=== PATIENT | male | born 1935 | race Caucasian/White ===

== ENCOUNTER 2017-01-06 13:55 | Outpatient (CLI) | payer MEDICARE, OTHER ==
[2017-01-06 15:46] LABS: eGFR (African) > 60; eGFR (Non-African) > 60
--- NOTE | 2017-01-07 10:24 | OP Clinic Progress Note ---
REFERRING PHYSICIAN: Dr. Tylor Cantu REASON FOR VISIT: This male, born 1935, is seen with a history of a chronic cough, postnasal drainage, stuffiness, and thick mucus in his throat. He has had this at least 6 months. He felt as if it kind of came on with a cold. He takes inhalers, I believe, Symbicort regularly and p.r.n., usually once or twice a day at least, albuterol. He also uses a CPAP at night and has some difficulty with it. He has nasal congestion and stuffiness and mouth breathing. In addition, the patient is overweight. I do not feel any masses in his neck but he is significantly overweight and has a large anterior neck wattle that reduces the ability to really confirm that there is any mass in the neck but there is certainly nothing obvious. He has marked edema and erythema of the inferior turbinates bilaterally. The right nostril is somewhat more restricted than the left. Using a flexible fiberoptic laryngoscope down the left nostril, I see the patient's tongue base, which is somewhat thickened. There is lateral narrowing in addition. There is edema of the vocal cords. I do not see any mass, tumor , nor paralysis. 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 IMPRESSION: Overall, the picture is that the patient has diffuse edema and thickening. This is from chronic respiratory irritants to the nasal passages, the oropharynx , and more than likely the terminal aspects of the lung whittaker with the alveoli , bronchi, and the trachea. The patient by history got fairly markedly better taking steroids, although they do not know the dosage with this. It is possible that a low-grade fungus can contribute to this. He does have edema and erythema and thickening of the nasal membranes, the oropharynx, and larynx. PLAN: On an empiric basis, I gave him 100 mg of Diflucan to take 3 times a week on Wednesday, Wednesday, and Wednesday. He will get a chemistry profile. In addition, I have asked him to get a CT scan of his sinuses. Let us get a blood test of his allergies if it is possible to get a RAST and look at his immunoglobulins, specifically, the IgG, sedimentation rate, IgA, and IgM. Again, this seems to be diffuse edema and thickening of all the respiratory membranes from the tip of his nose to the bottom of his alveoli. More than likely this come on from the chronic pulmonary irritants and allergen abuse. Again, I gave him a trial on antifungal medications for a month. I gained the information as described above and will make some additional decisions and I will see him in about a month. cc: Dr. Tylor REAL
[2017-01-08 14:51] LABS: EGG WHITE <0.10 kU/L; POTATO <0.10 kU/L
== END 2017-01-06 13:56 ==
LOC: ENT 13:55
PROVIDERS: ATTEND Otolaryngology
DX: R05 Cough (principal)
CPT/HCPCS: 31575; 36415; 80053; 82784; 82785; 86003; G0463

== ENCOUNTER 2017-02-03 13:12 | Outpatient (CLI) | payer MEDICARE, OTHER ==
--- NOTE | 2017-02-05 13:54 | OP Clinic Progress Note ---
REASON FOR VISIT: Mr. Macdonald is an 81-year-old man seen in follow up of his chronic rhinosinusitis , postnasal drainage, slimy mouth, hoarseness and cough. It looks as if he may have had more of a superficial but diffuse fungal infection and he was Diflucan 100 mg on Wednesday, Wednesday, and Wednesday. The patient feels that he has not felt so good in a long time. He may be 80% to 85% improved. Using a flexible fiberoptic laryngoscope, I looked at the patient's larynx. He still has several patches of somewhat whitish and still some erythema. With the patient's consent, I would like to give him another month of Diflucan 100 mg on Wednesday, Wednesday, and Wednesday for that 4 weeks. He can continue to follow up with Dr. Tylor Cantu. cc: Dr. Tylor REAL
--- NOTE | 2017-02-08 15:15 | OP Clinic Progress Note ---
REFERRING PHYSICIAN: Dr. Tylor Cantu REASON FOR VISIT: Mr. Macdonald is an 81-year-old man seen in follow up of his chronic rhinosinusitis , postnasal drainage, slimy mouth, hoarseness, and cough. It looks as if he may have had more of a superficial but diffuse fungal infection and he was given Diflucan 100 mg to take Wednesday, Wednesday, and Wednesday. The patient feels that he has not felt so good in a long time. He may be 80% to 85% improved. Using a flexible fiberoptic laryngoscope, I looked at the patient's larynx. He still has several patches that are somewhat whitish and still some erythema. PLAN: With the patient's consent, I would like to give him another month of Diflucan 100 mg to take Wednesday, Wednesday, and Wednesday for that 4 weeks. He can continue to follow up with Dr. Tylor Cantu. cc: Dr. Tylor REAL
== END 2017-02-03 13:13 ==
LOC: ENT 13:12
PROVIDERS: ATTEND Otolaryngology
DX: J32.9 Chronic sinusitis, unspecified (principal); B48.8 Other specified mycoses
CPT/HCPCS: 31575; G0463

== ENCOUNTER 2017-03-10 14:46 | Outpatient (CLI) | payer MEDICARE, OTHER ==
--- NOTE | 2017-03-11 11:19 | OP Clinic Progress Note ---
REASON FOR VISIT: Joaquin is seen in follow up of his chronic laryngitis and rhinitis. He has taken 2 courses of Diflucan and has gotten progressively better. Recently, he has developed a low-grade bronchitis. His nose looks much improved with rhinoscopy and 0 and 30-degree lenses. He has some coarse rales in both lung whittaker. PLAN: Just on an empiric basis, I gave him amoxicillin 500 mg 3 times a day. He also uses a CPAP and he acknowledges that he does not keep it very clean and he may be chronically infecting himself. At this point, we are looking into making some effort to see if we can get a newer type of CPAP machine that is easier to be cleaned, as it is going to continue to be very difficult for him. cc: Dr. Tylor REAL
== END 2017-03-10 14:47 ==
LOC: ENT 14:46
PROVIDERS: ATTEND Otolaryngology
DX: J37.0 Chronic laryngitis (principal); J31.0 Chronic rhinitis
CPT/HCPCS: G0463

== ENCOUNTER 2017-03-17 13:01 | Outpatient (CLI) | payer MEDICARE, OTHER ==
--- NOTE | 2017-03-18 13:20 | OP Clinic Progress Note ---
REASON FOR VISIT: This is a follow up visit on Joaquin for throat discomfort and some cough. 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 Liver function tests look normal and the head looked adequate. He has had chest congestion and a few rales and rhonchi on his last visit. I gave him a course of amoxicillin. He still has about 4 days left on that. He feels that he is fairly significantly improved at least over 60%. His chest sounds much clearer. Using a flexible laryngoscope to check his vocal cords, although edematous, I do not see evidence of leukoplakia. His voice is significantly less hoarse. PLAN: At this point, I am turning him back over to the care of Dr. Cantu. If his symptoms relapse and he gets a little worse, I am more than happy to see him again. I am not giving him any new courses of medicines today. cc: Dr. Tylor REAL
== END 2017-03-17 13:02 ==
LOC: ENT 13:01
PROVIDERS: ATTEND Otolaryngology
DX: R07.0 Pain in throat (principal); R05 Cough
CPT/HCPCS: G0463

== ENCOUNTER 2017-05-12 14:50 | Outpatient (CLI) | payer MEDICARE, OTHER ==
--- NOTE | 2017-05-18 12:45 | OP Clinic Progress Note ---
REASON FOR VISIT: I have seen Joaquin off and on with an upper respiratory, chest, and throat symptoms. Overall, he has at least moderately improved on taking Diflucan. I discharged him with no specific follow up about a month ago. He has returned today with complaints of having a cold and an upper respiratory tract infection bothering his lungs and other complaints, along with some issues and problems with his CPAP machine. In regards to the CPAP machine, I have asked him to re- discuss that with whomever supplies that. He does have some rales and rhonchi but he has had those generally. His throat does not appear to have the white fungal patches that it had in the past by fiberoptic examination. PLAN: I gave him simply a trial on doxycycline 100 mg twice a day for 2 weeks. I have encouraged him to continue his follow up with Dr. Cantu. Thank you very much, cc: Dr. Tylor REAL
== END 2017-05-12 14:52 ==
LOC: ENT 14:50
PROVIDERS: ATTEND Otolaryngology
DX: R09.89 Other specified symptoms and signs involving the circulatory and respiratory systems (principal)
CPT/HCPCS: G0463

== ENCOUNTER 2017-06-09 15:02 | Outpatient (CLI) | payer MEDICARE, OTHER ==
--- NOTE | 2017-06-14 12:05 | OP Clinic Progress Note ---
REASON FOR VISIT: This 81-year-old man has previously been seen with problems complaining of chest and congestion issues and has been taking doxycycline and is markedly improved. At this time, the patient feels like mostly it is in his head. He has a cold and is congested with postnasal drainage, mouth breathing, more stuffiness than usual, and some degree of headaches and pressure and discomfort overlying the ethmoid and maxillary sinus areas. He does have some purulence in both nostrils , little more on the left than on the right today. Using zero and 30 degree endoscopes, I do not particularly see polyps today and he does have posterior pharyngitis. PLAN: On an empiric basis, he is given amoxicillin 500 mg 3 times a day and may return on a p.r.n. basis; however, I have encouraged him to see his physician, Dr. Cantu. cc: Dr. Tylor REAL
== END 2017-06-09 15:03 ==
LOC: ENT 15:02
PROVIDERS: ATTEND Otolaryngology
DX: J02.9 Acute pharyngitis, unspecified (principal); R51 Headache; R09.81 Nasal congestion
CPT/HCPCS: 31231; G0463

== ENCOUNTER 2017-09-29 10:17 | Outpatient (CLI) | payer MEDICARE, OTHER ==
--- NOTE | 2017-09-29 11:36 | Diagnostic Imaging Report ---
IRENE DUMONT [facility] [address] [facility].[address] [id number] Report Submission Date: Sep 29, 2017 11:33:16 AM MACHINE ASSEMBLER Patient Study Name: SYLVAIN JORDAN Date: Sep 29, 2017 11:08:42 AM MACHINE ASSEMBLER Modality Type: CR Gender: M Description: CHEST : 33 Institution: [facility] Physician: IRENE DUMONT Examination: PA and lateral chest. History: Evaluate lung whittaker. Comparison exam: None provided. Findings: PA lateral chest demonstrate a prominent cardiac and mediastinal silhouette. Vascular calcifications involving aortic arch. Lung base parenchymal scarring. No gross infiltrate. No blunting of the costophrenic margins. Osseous structures are appropriate for age. Impression: Chronic appearing parenchymal changes. No acute appearing pulmonary process. Electronically signed on Sep 29, 2017 11:33:16 AM MACHINE ASSEMBLER by: Javon REAL
== END 2017-09-29 10:20 ==
LOC: RAD 10:17
PROVIDERS: ATTEND Family Medicine
DX: J44.9 Chronic obstructive pulmonary disease, unspecified (principal)
CPT/HCPCS: 71020

== ENCOUNTER 2017-11-05 12:11 | Outpatient (CLI) | payer MEDICARE, OTHER ==
--- NOTE | 2017-11-15 12:57 | CONSULTATION REPORT ---
PRIMARY CARE PHYSICIAN: Dr. Tylor Cantu CONSULTING PHYSICIAN: Amanda Chung MD CHIEF COMPLAINT: "I am having trouble breathing and have congestion." PROBLEM LIST: 1. Chronic obstructive pulmonary disease (COPD). 2. Obstructive sleep apnea: On CPAP. 3. Diabetes. 4. Hyperlipidemia. 5. Hypertension. 6. Bladder cancer: Status post TURP and radiation. 7. Sinus congestion. HISTORY OF PRESENT ILLNESS: This is an 82-year-old male who is complaining of shortness of breath and congestion. He uses albuterol rarely but when he does, he says it helps him. He does not take his Symbicort because he feels good and therefore, he does not need it. He does have a nebulizer at home which he uses for albuterol and ipratropium and he states he likes the nebulized medicine very much. He does have home oxygen set at 2.5 liters, however, he rarely uses it during the day. He does have obstructive sleep apnea and states that this was diagnosed at [facility] approximately 15 to 20 years ago. He has not had any further sleep studies. He does have a CPAP machine that he thinks oxygen is bled into it at night and he states he wears his CPAP machine mask all night long. His DME provider is [facility] out of [place], [place]. He has seen an ENT physician for his sinus congestion. He has taken some doxycycline and feels somewhat better. He does use Sudafed p.r.n. which he states definitely helps him. On June 09, 2017, the patient did see Dr. Lindsay an ENT. He found no nasal polyps and some posterior pharyngitis. He prescribed him amoxicillin 500 mg 3 times a day. The patient used to smoke 1 pack of cigarettes per day for many years and then switched over to cigars. Currently, he is not smoking. He denies chest pain. There is no GERD. No PND. He definitely has postnasal drainage and as mentioned, he likes using Sudafed. He has never used prednisone. There is no hemoptysis. He still has a cough and has just occasionally pale sputum which has improved. His weight is stable. His appetite is good. There are no fever , chills, or sweats. There is no past history of asthma, pneumonia, or DVTs. REVIEW OF SYSTEMS: Please see HPI for pertinent review of systems, otherwise, all other systems are negative. ALLERGIES: No known allergies. MEDICATIONS: 1. Glipizide XL 10 mg daily. 2. Lovastatin 80 mg daily. 3. Lisinopril 20 mg daily. 4. Aspirin 81 mg daily. 5. Calcium with vitamin D 630/500 mg daily. 6. Fish/flax/borage oil 1 daily. 7. Symbicort 160/4.5, two inhalations b.i.d. 8. Albuterol and ipratropium via nebulizer 4 times per day. 9. Finasteride 5 mg daily. 10. Viagra p.r.n. SOCIAL HISTORY: Patient is retired and lives alone. His 3 years ago. FAMILY HISTORY: Patient does not know of his family medical history. PHYSICAL EXAMINATION: GENERAL: This is a well-developed, well-nourished obese male in no acute distress speaking in full sentences. VITAL SIGNS: BP: 197/96, P: 84, R: 24, T: 98.4, room air oxygen saturation was 93%. Height: 5 feet 11 inches. Weight: 246 pounds. BMI: 34.3. HEENT: Pupils are equal. Oropharynx is clear. No thrush. Neck: Supple. No JVD. Lungs: Good air movement bilaterally. Bilateral wheezing. Cardiac: Rate and rhythm are regular. No murmurs, rubs, or gallops. S1, S2 without S3 or S4. Abdomen: Obese, soft, and nontender. No organomegaly. Extremities: Trace edema. No cyanosis or clubbing. Neurologic: Awake, alert, and oriented. Grossly nonfocal. IMAGING: Imaging was independently reviewed by me personally. 1. Chest x-ray on September 29, 2017: Right lower lobe infiltrate versus scarring. ASSESSMENT AND PLAN: PROBLEM #1: Chronic obstructive pulmonary disease (COPD). I have reviewed with the patient the importance and necessity of taking Symbicort on a regular basis. I have also talked to him about adding a long- acting anticholinergic inhaler. At present, he states that he does not think he could afford that. PLAN: 1. Pulmonary function test (PFT) with arterial blood gas (ABG). 2. Albuterol MDI 2 puffs every 3 to 4 hours p.r.n. shortness of breath/ wheeze. 3. Since the patient likes his nebulizer and uses it, we will need to contact [facility] to see if it would be cost appropriate to give arformoterol and budesonide via the nebulizer and then stop the Symbicort. 4. Chest x-ray prior to next clinic visit. 5. Augmentin 875 mg p.o. b.i.d. for 10 days. PROBLEM #2: Sinus congestion. PLAN: 1. Augmentin 875 mg p.o. b.i.d. 2. On next visit, need to explore if the CPAP mask and CPAP machine are causing the sinus congestion. 3. Will contact [facility] for old sleep study. PROBLEM #3: Hypertension. Patient does admit that he did not take his morning blood pressure pill and will take one as soon as possible. PLAN: Monitor blood pressure on next visit. PROBLEM #4: Obesity Class 1. PROBLEM #5: Pulmonary prevention. Patient has had his flu shot this season. PLAN: Return to clinic in 1 month. cc: Dr. Tylor REAL
== END 2017-11-05 12:12 ==
LOC: PULMONARY 12:11
PROVIDERS: ATTEND Internal Medicine Pulmonary Disease
DX: J44.9 Chronic obstructive pulmonary disease, unspecified (principal); G47.30 Sleep apnea, unspecified; E11.9 Type 2 diabetes mellitus without complications; E78.5 Hyperlipidemia, unspecified; I10 Essential (primary) hypertension; R09.81 Nasal congestion; Z85.51 Personal history of malignant neoplasm of bladder
CPT/HCPCS: 99214; G0463

== ENCOUNTER 2017-11-15 09:45 | Outpatient (CLI) | payer MEDICARE, OTHER ==
[2017-11-15] MEDS ORDERED: ALBUTEROL SULFATE 2.5 MG/3 ML AMPUL.NEB NEB ONE (09:48)
[2017-11-15 10:09] LABS: ABG PH 7.48 (7.35-7.45)
== END 2017-11-15 09:46 ==
LOC: RT 09:45
PROVIDERS: ATTEND Internal Medicine Pulmonary Disease
DX: J44.9 Chronic obstructive pulmonary disease, unspecified (principal); R06.02 Shortness of breath; R05 Cough
CPT/HCPCS: 36600; 82803; 94060

== ENCOUNTER 2017-11-29 12:01 | Outpatient (CLI) | payer MEDICARE, OTHER ==
--- NOTE | 2017-11-29 14:55 | Diagnostic Imaging Report ---
TRINA MELLO [facility] [address] [facility] [address] [place] [address]. [id number] Report Submission Date: Nov 29, 2017 12:40:42 PM TELEPHONE TECHNICIAN Patient Study Name: SYLVAIN JORDAN Date: Nov 29, 2017 12:10:03 PM TELEPHONE TECHNICIAN Modality Type: CR Gender: M Description: CHEST : 33 Institution: [facility] Physician: TRINA MELLO Examination: PA and lateral chest. History: Evaluate lung whittaker. Comparison exam: None provided Findings: PA lateral chest demonstrate a mildly prominent cardiac and mediastinal silhouette. Mild parenchymal haziness at the right lung base. No blunting of the costophrenic margins. Flattening of the diaphragms on lateral view. Osseous structures are appropriate for age. Impression: Mild right lower lung infiltrate. No gross effusion Electronically signed on Nov 29, 2017 12:40:42 PM TELEPHONE TECHNICIAN by: Javon REAL
== END 2017-11-29 12:02 ==
LOC: RAD 12:01
PROVIDERS: ATTEND Internal Medicine Pulmonary Disease
DX: R06.02 Shortness of breath (principal); R05 Cough; J44.9 Chronic obstructive pulmonary disease, unspecified
CPT/HCPCS: 71020

== ENCOUNTER 2017-12-03 11:44 | Outpatient (CLI) | payer MEDICARE, OTHER ==
--- NOTE | 2017-12-13 12:32 | OP Clinic Progress Note ---
PRIMARY CARE PROVIDER: Dr. Tylor Cantu CHIEF COMPLAINT: "I have a bad head cold now." SIGNIFICANT PROBLEM LIST: 1. Severe chronic obstructive pulmonary disease (COPD), GOLD Class 3. 2. Obstructive sleep apnea: On CPAP. 3. Diabetes. 4. Hyperlipidemia. 5. Hypertension. 6. Bladder cancer: Status post TURP and radiation. 7. Sinus congestion. HISTORY OF PRESENT ILLNESS: This is an 82-year-old gentleman who returns for follow up after a month complaining now of having a head cold. He states that his breathing is better. He does not feel that he is wheezing but he definitely has head and nasal congestion. At his last visit, I had prescribed Augmentin which helped, and then after he completed the first trial of Augmentin, he called and requested more because he did not feel quite as good as he felt he should. I did prescribe another 14 days. Patient says it has helped but now he has the head cold. He denies sinus drainage. He denies fever. There is no myalgias. He is using his nebulizer and Symbicort as prescribed and he continues to refuse anticholinergic inhalers based on the shah. ALLERGIES: No known allergies. MEDICATIONS: 1. Lisinopril 20 mg daily. 2. Glipizide 5 mg daily. 3. Lovastatin 80 mg daily. 4. Aspirin 81 mg daily. 5. Calcium/D3, 630/500 mg daily. 6. Fish oil 1 tablet daily. 7. Symbicort 160/4.5, 2 puffs b.i.d. 8. DuoNeb nebulizer 3 to 4 times per day. 9. Finasteride 5 mg daily. 10. Viagra p.r.n. PHYSICAL EXAMINATION: Vital Signs: BP: 165/78, P: 84, R: 22, T: 97.8. Room air oxygen saturation is 92%. Height: 5 feet 11 inches. Weight: 240 pounds. BMI: 33.7, Class 1 obesity. General: This is a well-developed, well-nourished man who is mildly uncomfortable due to a head cold speaking in full sentences. HEENT: Pupils are equal and reactive. Oropharynx: Clear. No thrush. No erythema. Lungs: Good equal bilateral air excursion. No wheezing. No crackles. Cardiac: Rate and rhythm are regular, S1 and S2 without S3, S4, or murmurs. Abdomen: Obese, soft and nontender. Extremities: No cyanosis or clubbing. Trace edema. Neurologic: Alert and oriented x3. Grossly nonfocal. IMAGING: All imaging was independently reviewed by me personally. 1. Chest x-ray on November 29, 2017: Peribronchial cuffing. Flat diaphragm. Ill-defined haziness in right lower lobe (unable to compare to previous x-ray) . 2. Pulmonary function testing, spirometry on November 15, 2017: FVC of 2.51 liters, 71% of predicted; FEV1 was 1.15 liters, 42% of predicted; FEV1/FVC was 0.45. Interpretation: Severe COPD, GOLD Class 3. 3. ABG on November 15, 2017: Showed a pH of 7.48, pCO2 of 37, pO2 of 78 on room air. 4. Polysomnography on July 21, 2005: This is only the subsequent CPAP study which recommends CPAP via a smart machine at pressures between 7 and 15 cm of water. ASSESSMENT AND PLAN: PROBLEM #1: Severe chronic obstructive pulmonary disease (COPD), GOLD Class 3. The patient does state he feels that his breathing is better, although overall, does not feel well due to a head cold. He does take his nebulizer and inhaler as prescribed; however, he definitely does not want to take any inhaled anticholinergic due to the cost. PLAN: 1. Continue Symbicort b.i.d. 2. Continue albuterol MDI as rescue inhaler. 3. Continue DuoNeb via nebulizer. 4. Head cold with sinus congestion, unfortunately, most likely caused by a virus. There is no indication that the patient has an influenza infection and the patient has had a flu shot this season. 5. Return to clinic in 3 months. cc: Dr. Tylor REAL
== END 2017-12-03 11:45 ==
LOC: PULMONARY 11:44
PROVIDERS: ATTEND Internal Medicine Pulmonary Disease
DX: J44.9 Chronic obstructive pulmonary disease, unspecified (principal); G47.33 Obstructive sleep apnea (adult) (pediatric); E11.9 Type 2 diabetes mellitus without complications; E78.5 Hyperlipidemia, unspecified; I10 Essential (primary) hypertension; Z85.51 Personal history of malignant neoplasm of bladder; R09.81 Nasal congestion
CPT/HCPCS: 99214; G0463

== ENCOUNTER 2018-02-18 12:14 | Outpatient (CLI) | payer MEDICARE, OTHER ==
--- NOTE | 2018-02-28 08:33 | OP Clinic Progress Note ---
PRIMARY CARE PROVIDER: Dr. Tylor Cantu CHIEF COMPLAINT: Patient returning for COPD follow up. "My breathing is pretty good." SIGNIFICANT PROBLEM LIST: 1. Severe chronic obstructive pulmonary disease (COPD), GOLD Class 3. 2. Obstructive sleep apnea: On CPAP. 3. Diabetes. 4. Hyperlipidemia. 5. Hypertension. 6. Bladder cancer: Status post TURP and radiation. 7. Sinus congestion. HISTORY OF PRESENT ILLNESS: This is an 82-year-old male who returns for follow up after 3 months. He states that his main complaint is bilateral tingling in both of his feet. This is what is bothering him the most. He has not mentioned this to his primary care provider. Overall, he says his breathing is okay. He continues to use his CPAP with oxygen at night. He feels happy because he has a new CPAP machine, (Note: He never cleaned his previous one). He does continue to use his DuoNeb nebulizer 3 to 4 times a day as needed and he uses Symbicort twice a day. He still is not interested in obtaining an anticholinergic agent. ALLERGIES: No known allergies. PRESENT MEDICATIONS: 1. Lisinopril 20 mg daily. 2. Glipizide 5 mg daily. 3. Lovastatin 80 mg daily. 4. Aspirin 81 mg daily. 5. Calcium/D3, 630/500 mg daily. 6. Fish oil 1 tablet daily. 7. Symbicort 160/4.5, two puffs b.i.d. 8. DuoNeb nebulizer 3 to 4 times per day. 9. Finasteride 5 mg daily. 10. Viagra p.r.n. PHYSICAL EXAMINATION: Vital Signs: BP: 193/84, P: 88, R: 24, T: 96.3. Room air oxygen saturation was 93%. Weight: 240 pounds. BMI: 33.5. Class 1 obesity. GENERAL: This is a well-developed obese male in no acute distress speaking in full sentences. HEENT: Pupils are equal and reactive to light. Oropharynx is clear. No thrush. No erythema. LUNGS: Good air excursion bilaterally. No wheezes. Crackles at the right base. CARDIAC: Rate and rhythm are regular. No murmur, rubs, or gallops. ABDOMEN: Obese. Soft and nontender. EXTREMITIES: No cyanosis or clubbing. Trace to 1+ edema. NEUROLOGIC: Alert and oriented x3. Grossly nonfocal. ASSESSMENT AND PLAN: PROBLEM #1: Severe chronic obstructive pulmonary disease (COPD), GOLD Class 3. Currently, patient is doing well on his Symbicort and DuoNeb. He continues to refuse a trial of long-acting muscarinic inhalers, i.e. Spiriva. PLAN: 1. Continue Symbicort 160/4.5 b.i.d. 2. Continue albuterol MDI has rescue inhaler. 3. Continue DuoNeb via the nebulizer. PROBLEM #2: Possibly mild congestive heart failure (CHF). Patient clearly has slight crackles at his right base and has trace to 1+ edema. I suggested to the patient perhaps and echocardiogram. Depending on those results, could consider a diuretic which could improve his breathing and exercise tolerance. Patient at present is refusing the echocardiogram and the diuretic. PLAN: Re-assess his physical exam and need for echo in subsequent visits. PROBLEM #3: Bilateral foot tingling, most likely diabetic neuropathy. PLAN: 1. I referred him back to his primary care provider. 2. Patient chooses to return to clinic on a p.r.n. basis. cc: Dr. Tylor REAL
== END 2018-02-18 12:15 ==
LOC: PULMONARY 12:14
PROVIDERS: ATTEND Internal Medicine Pulmonary Disease
DX: J44.9 Chronic obstructive pulmonary disease, unspecified (principal); R20.9 Unspecified disturbances of skin sensation; G47.33 Obstructive sleep apnea (adult) (pediatric); E11.9 Type 2 diabetes mellitus without complications; E78.5 Hyperlipidemia, unspecified; I10 Essential (primary) hypertension; R09.81 Nasal congestion; D09.0 Carcinoma in situ of bladder
CPT/HCPCS: 99214; G0463

== ENCOUNTER 2018-02-23 10:42 | Outpatient (CLI) | payer MEDICARE, OTHER ==
--- NOTE | 2018-02-23 18:40 | Diagnostic Imaging Report ---
IRENE DUMONT [facility] [address] [facility] [address] [address] Report Submission Date: Feb 23, 2018 11:22:05 AM CDT Patient Study Name: SYLVAIN JORDAN Date: Feb 23, 2018 10:57:53 AM CDT Modality Type: DX Gender: M Description: LOWER EXTREMITY : 33 Institution: [facility] Physician: IRENE DUMONT Examination: Plain film left ankle History: LEFT ANKLE, PAIN IN LEFT ANKLE X1 WEEK WITH SWELLING AND DECREASED ROM , NO KNOWN INJURY (Hx) Findings: 3 views of the left ankle demonstrates normal distal tibia fibula. Mild cortical defect central aspect hematoma. Generalized soft tissue fullness. Calcaneal spurs. Vascular calcifications. Impression: Degenerative changes with possible talar dome chondral defect. Soft tissue swelling. Consider obtaining MRI ankle to further evaluate. Electronically signed on Feb 23, 2018 11:22:05 AM CDT by: Javon REAL
== END 2018-02-23 10:44 ==
LOC: LAB 10:42
PROVIDERS: ATTEND Family Medicine
DX: M25.572 Pain in left ankle and joints of left foot (principal); E11.9 Type 2 diabetes mellitus without complications
CPT/HCPCS: 36415; 73610; 83036

== ENCOUNTER 2018-08-25 20:45 | Inpatient (IN) | payer MEDICARE, OTHER ==
[2018-08-25 21:15] LABS: MEAN CORPUSCULAR HEMOGLOBIN 28.9 pg (28.0-34.0)
[2018-08-25 21:16] LABS: BASOPHILS % 0.3 (0.0-1.5); EOSINOPHILS % 1.7 % (0.0-6.8); MONOCYTES % 6.3 % (0.0-11.0); NEUTROPHILS # 10.1 # k/uL (1.4-7.7)
[2018-08-25 21:32] LABS: eGFR (Non-African) > 60
[2018-08-25] MEDS ORDERED: IPRATROPIUM/ALBUTEROL SULFATE 3 ML AMPUL.NEB NEB STA (21:32)
[2018-08-25] MEDS ORDERED: FUROSEMIDE 40 MG/4 ML VIAL IVP ONE (21:49)
--- NOTE | 2018-08-25 22:04 | Diagnostic Imaging Report ---
ANA LOUIS (PACKAGE DYE STAND LOADER) - ER [facility] [address] [address] Report Submission Date: Aug 25, 2018 9:47:37 PM CDT Patient Study Name: SYLVAIN JORDAN Date: Aug 25, 2018 9:28:52 PM CDT Modality Type: DX Gender: M Description: CHEST : 33 Institution: [facility] Physician: ANA LOUIS (PACKAGE DYE STAND LOADER) - ER Chest two views History: Shortness of breath. Findings: The lungs are hyperinflated. Heart size is normal. Pulmonary vascular congestion is present. Bibasilar reticular opacities are observed. Central pulmonary artery enlargement is observed. Impression: 1. Hyperinflation. 2. Bibasilar reticular opacities. Differential includes edema, atelectasis, bronchitis, and interstitial lung disease. 3. Pulmonary vascular congestion. 4. Central pulmonary artery enlargement suggests pulmonary hypertension. Electronically signed on Aug 25, 2018 9:47:37 PM CDT by: Sami REAL
[2018-08-25] MEDS ORDERED: methylPREDNISolone SOD SUCC 125 MG/2 ML VIAL IVP ONE (22:17)
--- NOTE | 2018-08-25 22:43 | ED Physician Documentation ---
Dyspnea - HISTORIAN Historian: patient - HPI Stated Complaint: SOA Chief Complaint: Dyspnea Onset: hours Duration: continues in ED Initiating Event: upper respiratory illness Severity: moderate Exacerbated By: nothing Further Comments: yes (84) - ROS CONST: recent illness EYES/ENT: none GI/: none NEURO/PSYCH: denies: headache MS/SKIN/LYMPH: none - PAST HX Lung Disease: COPD Cardiac Disease: CHF PE Risk Factors: hypertension Other History: diabetes Type 2, other (BPH, Home 02 prn, bipap, CHF, ) Allergies/Adverse Reactions: Allergies Allergy/AdvReac Type Severity Reaction Status Date / Time No Known Drug Allergies Allergy Verified 08/25/18 21:36 Home Medications: Ambulatory Orders Medication Instructions Recorded Aspirin [Aspir 81] 81 mg PO DAILY u2 03/12/16 Calcium Carb, Citrate/Vit D3 1 each PO DAILY u2 03/12/16 [Calcium + D3 Er Tablet] - SOCIAL HX Smoking History: non-smoker - FAMILY HX Family History: denies: none - VITAL SIGNS Vital Signs: Vital Signs Temp Pulse Resp BP Pulse Ox 100.3 F H 118 H 28 H 194/127 87 L 08/25/18 20:46 08/25/18 20:46 08/25/18 20:46 08/25/18 20:46 08/25/18 20:46 - REVIEWED ASSESSMENTS Nursing Assessment Reviewed: Yes Vitals Reviewed: Yes Progress - Progress Progress: RA Sat 87-88% on arrival Chest xray with pulmonary vascular congestion - dose of Lasix IV given. HTN treated with labetalol in ER. Solumedrol 125mg IV given. Reviewed lab and xray results with patient and family. Recommended admission - patient wants admission at [facility], refused transfer to [facility] Call to [facility] - patient accepted for med surg admit. Will continue nebs, O2, solumedrol and R/O OH. Patient agrees with plan of care. - EKG/XRAY/CT EKG: rhythm (ST, Rate 143) ED Results Lab/Radiology - Lab Results Lab Results: Lab Results 08/25/18 08/25/18 08/25/18 21:15 21:13 21:10 WBC RBC Hgb Hct MCV MCH MCHC RDW Plt Count Neut % (Auto) Lymph % (Auto) [place] % (Auto) Eos % (Auto) Baso % (Auto) Neut # (Auto) Lymph # (Auto) [place] # (Auto) Eos # (Auto) Baso # (Auto) Sodium 140 mmol/L mmol/L (136-145) Potassium 4.6 mmol/L mmol/L (3.5-5.1) Chloride 98 mmol/L mmol/L (98-107) Carbon Dioxide 30 mmol/L mmol/L (22-30) BUN 20 mg/dL mg/dL (9-20) Creatinine 1.20 mg/dL mg/dL (0.66-1.25) Est GFR ( Amer) > 60 (60 - ) Est GFR (Non-Af Amer) > 60 (60 - ) Glucose 114 mg/dL H mg/dL (74-106) Lactate 2.0 U/L U/L (0.7-2.1) Calcium 8.5 mg/dL mg/dL (8.4-10.2) Total Bilirubin 1.9 mg/dL H mg/dL (0.2-1.3) AST 21 U/L U/L (15-46) ALT 41 U/L U/L (13-69) Alkaline Phosphatase 84 U/L U/L (38-126) Troponin I 0.04 ng/mL ng/mL (0.03-0.06) NT-Pro-B Natriuret Pep 225.9 pg/mL pg/mL (15.0-450.0) Total Protein 7.1 g/dL g/dL (6.3-8.2) Albumin 3.9 g/dL g/dL (3.5-5.0) 08/25/18 21:10 WBC 12.10 K/ul H K/ul (4.00-12.00) RBC 5.39 M/ul H M/ul (3.90-5.20) Hgb 15.6 g/dL g/dL (12.0-18.0) Hct 48.2 % % (37.0-53.0) MCV 89.0 fl fl (80.0-100.0) MCH 28.9 pg pg (28.0-34.0) MCHC 32.3 g/dL g/dL (30.0-36.0) RDW 15.5 % H % (11.3-14.3) Plt Count 128 K/mm3 L K/mm3 (130-400) Neut % (Auto) 83.0 % H % (39.0-79.0) Lymph % (Auto) 8.7 % L % (16.0-50.0) [place] % (Auto) 6.3 % % (0.0-11.0) Eos % (Auto) 1.7 % % (0.0-6.8) Baso % (Auto) 0.3 (0.0-1.5) Neut # (Auto) 10.1 # k/uL H # k/uL (1.4-7.7) Lymph # (Auto) 1.1 # k/uL # k/uL (0.6-4.0) [place] # (Auto) 0.8 # k/uL # k/uL (0.0-0.9) Eos # (Auto) 0.2 # k/uL # k/uL (0.0-0.6) Baso # (Auto) 0.0 # k/uL # k/uL (0.0-0.5) Sodium Potassium Chloride Carbon Dioxide BUN Creatinine Est GFR ( Amer) Est GFR (Non-Af Amer) Glucose Lactate Calcium Total Bilirubin AST ALT Alkaline Phosphatase Troponin I NT-Pro-B Natriuret Pep Total Protein Albumin - Radiology Radiology Impressions: Chest two views History: Shortness of breath. Findings: The lungs are hyperinflated. Heart size is normal. Pulmonary vascular congestion is present. Bibasilar reticular opacities are observed. Central pulmonary artery enlargement is observed. Impression: 1. Hyperinflation. 2. Bibasilar reticular opacities. Differential includes edema, atelectasis, bronchitis, and interstitial lung disease. 3. Pulmonary vascular congestion. 4. Central pulmonary artery enlargement suggests pulmonary hypertension. Electronically signed on Aug 25, 2018 9:47:37 PM CDT by: Sami Anderson - Orders Orders: ED Orders Category Date Time Status Place IV Lock 1T Care 08/25/18 20:59 Active CHEST 2VIEW [RAD] Stat Exams 08/25/18 21:01 Completed CBC/PLATELET/DIFF Stat Lab 08/25/18 21:10 Completed CMP Stat Lab 08/25/18 21:10 Completed LACTATE Stat Lab 08/25/18 21:13 Completed NT-proBNP Stat Lab 08/25/18 21:15 Completed TROPONIN I (cTnI) Stat Lab 08/25/18 21:15 Completed Furosemide [Lasix] Med 08/25/18 21:49 Discontinued 40 mg IVP NOW ONE Ipratropium/Albuterol Sulfate [Duoneb] Med 08/25/18 21:32 Discontinued 3 ml NEB STAT STA methylPREDNISolone SOD SUCC [Solu-MEDROL] Med 08/25/18 22:17 Discontinued 125 mg IVP NOW ONE Dyspnea Physical Exam - EXAM General Appearance: moderate distress EENT: eye inspection normal, UNIQUE Respiratory: accessory muscle use, decreased air movement (bilateral), other (tachypneia) CVS: no murmur, no gallop, no friction rub, pulses full, pulses equal, tachycardia Skin: color nml, no rash, warm, nml palp., dry Extremities: non-tender, normal range of motion, no evidence of injury, no edema, J, [employer] Neuro/Psych: oriented x3, CN's nml as tested, motor nml, sensation nml, mood/affect nml Discharge Clincal Impression: COPD exacerbation, Pulmonary vascular congestion, Hypoxemia requiring supplemental oxygen, Dyspnea on exertion Condition: Stable Disposition: ADMITTED INPATIENT Decision to Admit: [id number] Decision Time: 22:15
[2018-08-25] MEDS ORDERED: LABETALOL HCL 100MG/20ML VIAL IVP STA (22:44)
[2018-08-25] MEDS ORDERED: IPRATROPIUM/ALBUTEROL SULFATE 3 ML AMPUL.NEB NEB PRN (23:59)
[2018-08-26] MEDS ORDERED: ASPIRIN 81 MG CHEW TAB PO ONE (01:54)
[2018-08-26] MEDS ORDERED: METOPROLOL TARTRATE 5 MG/5 ML VIAL IVP ONE ×2 (02:25→02:29)
--- NOTE | 2018-08-26 02:25 | Discharge Summary ---
Discharge Summary - Discharge Sumary History of Present Illness: Patient was admitted through the ER with COPD exacerbation, pulmonary congestion, dyspnea and increased oxygen requirements. Serial cardiac enzymes were ordered. Second troponin elevated to .74 Condition at Discharge: Guarded Home Medications: Ambulatory Orders Medication Instructions Recorded Aspirin [Aspir 81] 81 mg PO DAILY u2 03/12/16 Calcium Carb, Citrate/Vit D3 1 each PO DAILY u2 03/12/16 [Calcium + D3 Er Tablet] Consultations this Visit: None Procedures this Visit: None Allergies/Adverse Reactions: Allergies Allergy/AdvReac Type Severity Reaction Status Date / Time No Known Drug Allergies Allergy Verified 08/25/18 21:36 Patient Problems: Current Active Problems Problem Status Onset AMI (acute myocardial infarction) Acute COPD exacerbation Acute Dyspnea on exertion Acute Hypoxemia requiring supplemental oxygen Acute Pulmonary vascular congestion Acute Discharge Summary: [facility]. Had been on the floor for approximately 2 hours when Second troponin was .74 Case discussed with family - recommended transfer to higher level of care. Family prefers [place]. 0224 Call to [facility]; patient accepted by Dr Price. EKG 0211 SR, Rate 92, no acute change. BP 149/79 - additional 5mg metoprolol given. Hospital Course: Transferred to [place] 025
[2018-08-26 03:56] VITALS: BP 148/79
[2018-08-26 04:09] VITALS: BMI 34.8
[2018-08-26] MEDS ORDERED: SALINE FLUSH 10 ML DISP.SYRIN IV SCH (09:00)
== END 2018-08-26 03:45 | disposition short-term general hospital (02) | DRG 192 ==
LOC: ED 20:45 → SOUTH 23:02
PROVIDERS: ADMIT Family Medicine; ATTEND Family Medicine
DX: J44.1 Chronic obstructive pulmonary disease with (acute) exacerbation (principal); R79.89 Other specified abnormal findings of blood chemistry; I50.9 Heart failure, unspecified; R09.02 Hypoxemia; I10 Essential (primary) hypertension; E11.9 Type 2 diabetes mellitus without complications; Z99.81 Dependence on supplemental oxygen
CPT/HCPCS: 71046; 80053; 83605; 83880; 84484; 85025; J1940; J2930; J3490; 94640; 96374; 96375; 99238; S1016

== ENCOUNTER 2018-09-09 10:49 | Outpatient (CLI) | payer MEDICARE, OTHER ==
[2018-09-09 11:57] LABS: BASOPHILS % 0.7 (0.0-1.5); EOSINOPHILS % 2.2 % (0.0-6.8); MEAN CORPUSCULAR HEMOGLOBIN 29.4 pg (28.0-34.0); MONOCYTES % 4.2 % (0.0-11.0)
[2018-09-09 11:58] LABS: NEUTROPHILS # 1.7 # k/uL (1.4-7.7)
--- NOTE | 2018-09-09 13:39 | Diagnostic Imaging Report ---
IRENE DUMONT [facility] [address] [facility].[address] [address] Report Submission Date: Sep 09, 2018 1:35:54 PM CDT Patient Study Name: SYLVAIN JORDAN Date: Sep 09, 2018 10:51:29 AM CDT Modality Type: DX Gender: M Description: CHEST : 33 Institution: [facility] Physician: IRENE DUMONT PA and lateral chest History: Dyspnea PA and lateral chest dated September 09, 2018 compared with August 25, 2018 The lungs are hyperinflated. The pulmonary arteries do not appear as prominent on today's study. Heart size is unchanged. Pulmonary vascularity is normal. There is no confluent infiltrate or pleural effusion. Impression: Hyperinflation consistent with COPD. No active disease. Electronically signed on Sep 09, 2018 1:35:54 PM CDT by: Carol REAL
== END 2018-09-09 10:50 ==
LOC: LAB 10:49
PROVIDERS: ATTEND Family Medicine
DX: J43.1 Panlobular emphysema (principal); I10 Essential (primary) hypertension
CPT/HCPCS: 36415; 71046; 85025

== ENCOUNTER 2019-01-30 12:07 | Outpatient (CLI) | payer MEDICARE, OTHER ==
[2019-01-30 12:23] LABS: MEAN CORPUSCULAR HEMOGLOBIN 28.4 pg (28.0-34.0)
[2019-01-30 12:24] LABS: BASOPHILS % 0.4 (0.0-1.5); EOSINOPHILS % 1.5 % (0.0-6.8); NEUTROPHILS # 6.5 # k/uL (1.4-7.7)
--- NOTE | 2019-01-30 13:36 | Diagnostic Imaging Report ---
IRENE DUMONT [facility] [address] [facility].[address] [address] Report Submission Date: Jan 30, 2019 12:59:15 PM CDT Patient Study Name: SYLVAIN JORDAN Date: Jan 30, 2019 12:14:57 PM CDT Modality Type: DX Gender: M Description: CHEST 2VIEW : 33 Institution: [facility] Physician: IRENE DUMONT CHEST 2VIEW HISTORY: INCREASED SHORT OF BREATH X 1 WEEK. FINDINGS: PA and lateral views of the chest demonstrates increased markings in the right lower lobe posteriorly suggesting an ill defined infiltrate that has become apparent since the prior study dated September 09, 2018. Overexpansion of the lungs with flattened diaphragms and increased AP diameter of the chest is seen consistent with COPD. No other focal infiltrates are seen. Cardiac silhouette and bony thorax are unremarkable. IMPRESSION: Overexpansion of the lungs with right lower lobe ill defined infiltrate. Electronically signed on Jan 30, 2019 12:59:15 PM CDT by: Johny REAL
== END 2019-01-30 12:10 ==
LOC: LAB 12:07
PROVIDERS: ATTEND Family Medicine
DX: J18.9 Pneumonia, unspecified organism (principal)
CPT/HCPCS: 36415; 71046; 85025

== ENCOUNTER 2019-02-22 11:53 | Outpatient (CLI) | payer MEDICARE, OTHER ==
[2019-02-22 12:12] LABS: BASOPHILS % 0.3 % (0.0-1.5); EOSINOPHILS % 0.8 % (0.0-6.8); MEAN CORPUSCULAR HEMOGLOBIN 29.2 pg (28.0-34.0); MONOCYTES % 6.4 % (0.0-11.0)
[2019-02-22 12:28] LABS: eGFR (Non-African) 50
--- NOTE | 2019-02-22 22:09 | Diagnostic Imaging Report ---
IRENE DUMONT [facility] [address] [facility] [address] [place], [place]. [address] Report Submission Date: Feb 22, 2019 3:49:28 PM CDT Patient Study Name: SYLVAIN JORDAN Date: Feb 22, 2019 12:01:29 PM CDT Modality Type: DX Gender: M Description: CHEST 2VIEW : 33 Institution: [facility] Physician: IRENE DUMONT PA and lateral chest History: Follow-up right lower lobe pneumonia PA and lateral chest dated February 22, 2019 is compared with January 30, 2019 and August 25, 2018. The cardiomediastinal silhouette is within normal limits aside from mild aortic atherosclerosis. The left lung is clear There is a small region of persisting mild posterior right lower lobe infiltrate, unchanged in appearance compared with January 30, 2019 but new in appearance compared with August 25, 2018. Pulmonary vascularity is normal. No pleural effusion is seen. Impression: Persisting small region of right lower lobe infiltrate, unchanged compared with January 30, 2019. Hyperinflation, unchanged. Electronically signed on Feb 22, 2019 3:49:28 PM CDT by: Carol REAL
== END 2019-02-22 11:54 ==
LOC: LAB 11:53
PROVIDERS: ATTEND Family Medicine
DX: J18.1 Lobar pneumonia, unspecified organism (principal)
CPT/HCPCS: 36415; 71046; 80053; 85025